=== PATIENT | male | born 1950 | race Caucasian/White ===

== ENCOUNTER 2019-09-16 21:23 | Observation (INO) | payer BC ==
[2019-09-16] MEDS ORDERED: NS 0.9% 1000 ML** 1,000 ML IV ONE (21:33)
--- NOTE | 2019-09-16 21:40 | ED ---
Neurological HPI - HPI Summary HPI Summary: This pt is a 68 y/o male presenting to [facility] c/o dizziness, nausea, and feeling off balance since about 1900 today. reports she was cooking dinner when patient began to feel nauseous and patient stood up. noticed patient was uncoordinated bumping into things and dropping things while eating. Patient states he feels dizzy and off balance. Patient is unable to described dizziness feeling. Additionally noticed patient's speech was slurred. Patient denies any associated pain. Denies headache, tingling, numbness, weakness. Patient admits to drinking tonight and notes he had 5 beers (the last drink was about 1900 today). 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 PMHx: retinal damage to left eye about 50 years ago and does not see well from left eye. - History of Current Complaint Chief Complaint: EDNeurologicalDeficit Stated Complaint: NAUSEA/CONFUSION/SLURRED SPEECH PER PT Time Seen by Provider: 09/16/19 21:33 Hx Obtained From: Patient, Family/Liaison Engineer - Onset/Duration: Sudden Onset, Still Present Timing: Sudden Onset Current Severity: Mild Pain Intensity: 0 Pain Scale Used: 0-10 Numeric Character: Dizzy, Unable To Describe, Other: - Off balance, slurred speech Aggravating: Nothing Alleviating: Nothing Associated Signs and Symptoms: Positive: Unsteady Gait, Dizziness, Nausea/ Vomiting - Nausea. Negative: Headache, Weakness, Pain, Fever, Chest Pain, Shortness of Breath - Allergy/Home Medications Allergies/Adverse Reactions: Allergies Allergy/AdvReac Type Severity Reaction Status Date / Time peanut oil Allergy Nausea Verified 09/16/19 21:26 PMH/Surg Hx/FS Hx/Imm Hx Endocrine/Hematology History: Denies: Hx Diabetes Cardiovascular History: Reports: Hx Hypertension Sensory History: Reports: Hx Vision Problem - Retinal damage to left eye Infectious Disease History: No Infectious Disease History: Denies: Traveled Outside the [place] in Last 30 Days - Family History Known Family History: Positive: Cardiac Disease - Social History Alcohol Use: Occasionally Substance Use Type: Reports: None Smoking Status (MU): Never Smoked Tobacco Review of Systems Negative: Fever, Chills Negative: Erythema Negative: Sore Throat Negative: Chest Pain Negative: Shortness Of Breath, Cough Positive: Nausea. Negative: Vomiting Negative: dysuria, hematuria Negative: Myalgia, Edema Negative: Rash Neurological: Other - POSITIVE: feeling off balance, slurred speech, dizziness Negative: Headache, Paresthesia, Numbness All Other Systems Reviewed And Are Negative: Yes Physical Exam - Summary Physical Exam Summary: Constitutional: Well-developed, Well-nourished, Alert. (-) Distressed Skin: Warm, Dry HENT: Normocephalic; Atraumatic Eyes: Conjunctiva normal Neck: Musculoskeletal ROM normal neck. (-) JVD, (-) Stridor, (-) Tracheal deviation Cardio: Rhythm regular, rate normal, Heart sounds normal; Intact distal pulses; The pedal pulses are 2+ and symmetric. Radial pulses are 2+ and symmetric. (-) Murmur Pulmonary/Chest wall: Effort normal. (-) Respiratory distress, (-) Wheezes, (-) Rales Abd: Soft. (-) Tenderness, (-) Distension, (-) Guarding, (-) Rebound Musculoskeletal: (-) Edema Lymph: (-) Cervical adenopathy Neuro: Alert, Oriented x3, Strength normal, Patient with dysarthria. Psych: Mood and affect Normal Triage Information Reviewed: Yes Vital Signs On Initial Exam: Initial Vitals Temp Pulse Resp BP Pulse Ox 98.0 F 74 18 124/84 98 09/16/19 21:28 09/16/19 21:28 09/16/19 21:28 09/16/19 21:28 09/16/19 21:28 Vital Signs Reviewed: Yes - [place] Coma Scale Best Eye Response: 4 - Spontaneous Best Motor Response: 6 - Obeys Commands Best Verbal Response: 5 - Oriented Coma Scale Total: 15 Procedures - Sedation Patient Received Moderate/Deep Sedation with Procedure: No Diagnostics - Vital Signs Vital Signs Temp Pulse Resp BP Pulse Ox 09/16/19 21:28 98.0 F 74 18 124/84 98 - Laboratory Result Diagrams: 09/17/19 05:58 09/17/19 05:58 Lab Statement: Any lab studies that have been ordered have been reviewed, and results considered in the medical decision making process. - CT Brain CT CT Interpretation Completed By: Radiologist Summary of CT Findings: IMPRESSION: 1. No acute intracranial abnormality. 2. Mil chronic small vessel ischemic disease. Dr. Young has reviewed this report. - EKG 2144 Cardiac Rate: NL - at 83 bpm EKG Rhythm: Sinus Rhythm Summary of EKG Findings: EKG at 2143 shows sinus rhythm at a rate of 83 bpm. No STEMI. EKG was interpreted and reviewed by ED physician. NIH Scale - NIH Scale Level of Consciousness: Alert/Keenly Responsive Ask Patient the Month and His/Her Age: Both Correct Ask Pt to Open/Close Eyes and Site Supervisor/Release Non-Paretic Hand: Both Correctly Best Gaze (Only Horizontal Eye Movement): Normal Visual Field Testing: Partial Hemianopia Facial Paresis-Pt to Smile & Close Eyes or Grimace Symmetry: Normal/Symmetrical Motor Function - Right Arm: No Drift-Holds 10 Seconds Motor Function - Left Arm: No Drift-Holds 10 Seconds Motor Function - Right Leg: No Drift-Holds 10 Seconds Motor Function - Left Leg: No Drift-Holds 10 Seconds Limb Ataxia-Must be out of Proportion to Weakness Present: Absent Sensory (Use Pinprick to Test Arms/Legs/Trunk/Face): Normal Best Language (Describe Picture, Name Items): No Aphasia Dysarthria (Read Several Words): Slurs Some Words Extinction and Inattention: No Abnormality Total Score: 2 Course/Dx - Course Course Of Treatment: Code Padilla overhead called at [address] Young. Pt to CT at 2132. Pt returns from CT at 2139. Radiologist repots negative brain CT at 2152. Discussed pt's case with Dr. Bolanos, neurologist from [facility] and initiated tele stroke. Assessment/Plan: Pt is a 68 y/o male presenting to [facility] c/o dizziness, nausea, and feeling off balance since about 1899 today. reports she was cooking dinner when patient began to feel nauseous and patient stood up. noticed patient was uncoordinated bumping into things and dropping things while eating. Patient states he feels dizzy and off balance. Patient is unable to described dizziness feeling. Additionally noticed patient's speech was slurred. Patient denies any associated pain. Pt admits to drinking 5 beers tonight, last drink at about 1899. Brain CT shows 1. No acute intracranial abnormality. 2. Mil chronic small vessel ischemic disease. Initiated tele stroke with Dr. Bolanos , neurologist from [facility]. Will tell Dr. Bolanos about a concern for alcohol intoxication and that labs are still pending at this time. Patient was signed out to Dr. Boateng pending lab results, chest XR, neurology consult, and disposition. At the time of sign out the CT images of still not been loaded at [facility]. Telestroke recommendations to Dr. boateng. - Diagnoses Provider Diagnoses: CVA (cerebral vascular accident), Alcohol intoxication During the Visit The Following Alert/Code Occurred: Code Padilla - overhead called at 2132 from triage. - Critical Care Time Critical Care Time: 30-74 min Discharge ED - Sign-Out/Discharge Documenting (check all that apply): Sign-Out Patient Signing out patient TO: Naima Boateng - Discharge Plan Condition: Stable Disposition: ADMITTED TO [facility] - Billing Disposition and Condition Condition: STABLE Disposition: Admitted to [facility] - Attestation Statements Document Initiated by Goldieibe: Yes Documenting Scribe: Lissa Monteiro Provider For Whom Scribe is Documenting (Include Credential): Gurmeet Young MD Scribe Attestation: Lissa Wakefield scribed for Gurmeet Young MD on 09/19/19 at 0827. Scribe Documentation Reviewed: Yes Provider Attestation: The documentation as recorded by the Lissa holguin accurately reflects the service I personally performed and the decisions made by , Gurmeet Young MD Status of Scribe Document: Viewed
[2019-09-16] MEDS ORDERED: Alteplase* 100 MG VIAL ONE (21:46)
[2019-09-16 22:02] LABS: ABS Basophils 0.1 10^3/ul (0-0.2); ABS Eosinophils 0.2 10^3/ul (0-0.6); ABS Lymphocytes 1.7 10^3/ul (1.0-4.8); ABS Monocytes 0.8 10^3/ul (0-0.8); ABS Neutrophils 4.1 10^3/ul (1.5-7.7); Eosinophil % 3.1 %; Hematocrit 44 % (42-52); Hemoglobin 15.1 g/dL (14.0-18.0); Lymphocyte % 24.1 %; Mean Corpuscular HGB Conc 34 g/dL (31-36); Mean Corpuscular Hemoglobin 31 pg (27-31); Mean Corpuscular Volume 90 fL (80-94); Mean Platelet Volume 7.6 fL (7.4-10.4); Platelet Count 185 10^3/uL (150-450); Red Blood Count 4.88 10^6 /uL (4.18-5.48); Red Cell Distribution Width 13 % (10-15)
[2019-09-16 22:11] LABS: Activated Partial Thrombo Time 29.8 seconds (26.0-38.0); INR 1.03 (0.82-1.09)
[2019-09-16 22:19] LABS: Albumin 3.9 g/dL (3.2-5.2); Albumin/Globulin Ratio 1.3 (1-3); BUN/Creatinine Ratio 14.8 (8-20); Calcium 8.6 mg/dL (8.6-10.3); EGFR Non-African American 95.1 (>60); HDL Cholesterol 40.3 mg/dL; Potassium 3.6 mmol/L (3.5-5.0); Total Bilirubin 0.8 mg/dL (0.2-1.0); Total Protein 6.9 g/dL (6.4-8.9)
[2019-09-16 22:20] LABS: Troponin I 0.01 ng/mL (<0.03)
--- NOTE | 2019-09-16 22:23 | ED ---
Progress - Progress Note Progress Note: Patient is sign out from Dr. Gurmeet Young to Dr. Naima Boateng at change of shift at 2200 on 09/16/19, pending lab work, CXR, neuro consult, and dispo. Course/Dx - Course Course Of Treatment: 68-year-old male signed out at change of shift to hi. Patient was a code chaudhary upon arrival through triage. Seen by Dr. Young. NIH reported as 2. Patient had negative CT scan of brain. Awaiting telemetry neuro consult. Neurologist did not recommend TPA at this time. Symptoms today. The patient's blood alcohol greater than 200. Patient referred to hospitalist for admission per neurology recommendations. - Diagnoses Provider Diagnoses: CVA (cerebral vascular accident), Alcohol intoxication During the Visit The Following Alert/Code Occurred: Code Padilla - overhead called at 2132 from triage. - Provider Notifications Discussed Care Of Patient With: Star Bolanos Time Discussed With Above Provider: 22:56 Instructed by Provider To: Other - I talked to Dr. Star Bolanos MD, who checked in with patient. Neurological signs subtle. No focal deficits. Even though the patient is in the TPA window, they would not recommend TPA. They recommend admission and repeat CT. I spoke to Dr. Childers, who accepts patient for admission. Admit/Transition Orders Completed By ED Provider: Yes Discharge ED - Sign-Out/Discharge Documenting (check all that apply): Patient Departure - admit, Receiving Sign- Out Receiving patient FROM: Gurmeet Young - Signout from Dr. Young at change of shift at 2200 on 09/16/19 - Discharge Plan Condition: Stable Disposition: ADMITTED TO [facility] - Billing Disposition and Condition Condition: STABLE Disposition: Admitted to [facility] - Attestation Statements Document Initiated by Scribe: Yes Documenting Scribe: Thomas Huerta Provider For Whom Scribe is Documenting (Include Credential): Dr. Naima Boateng MD Scribe Attestation: Thomas Wakefield, scribed for Dr. Naima Boateng MD on 09/17/19 at 0582. Scribe Documentation Reviewed: Yes Provider Attestation: The documentation as recorded by the scribeThomas accurately reflects the service I personally performed and the decisions made by hi, Dr. Naima Boateng MD Status of Scribe Document: Viewed
[2019-09-16] MEDS ORDERED: Thiamine INJ* 100 MG/ML 2 ML VIAL IM ONE (23:08)
[2019-09-16 23:41] LABS: Urine Appearance Clear; Urine Bilirubin Negative (Negative); Urine Blood Negative (Negative); Urine Color Straw; Urine Glucose Negative (Negative); Urine Ketones Negative (Negative); Urine Nitrite Negative (Negative); Urine Protein Negative (Negative); Urine Specific Gravity 1.004 (1.010-1.030); Urine Urobilinogen Negative (Negative)
[2019-09-17] MEDS ORDERED: LORazepam TAB(*) 1 MG PO SCH (02:00)
--- NOTE | 2019-09-17 04:23 | HP ---
CC: Dr. Brionna Ashford * ADMISSION HISTORY AND PHYSICAL: DATE OF ADMISSION: 09/17/19 CHIEF COMPLAINT: Dizziness and unsteady gait. HISTORY OF PRESENT ILLNESS: This is a 68-year-old male with past medical history of hypertension and dyslipidemia, but has not been on any medications for many months; history of gout; and benign prostatic hypertrophy; came in due to feeling dizzy, nausea, and feeling off balance. The patient stated that he was in his usual state of health, and when his was cooking dinner, he has had his 5 beers that is usual for him during the dinnertime and the noticed that his coordination was off and he was dropping things while he was eating, was feeling very dizzy and then followed by an episode of vomiting. So , he was brought into the ER and ishan chaudhary was called and Teleneurology suggested the patient should be observed to rule out any stroke with an MRI. The patient otherwise offers no symptoms at this point, stated that all his previous symptoms have resolved after coming into the ER. ALLERGIES: The patient has had allergy to peanut oil, canola and soy lemus oils to some extent, but not as much as peanut oil. He was previously known to have allergy to LIDOCAINE and OTHER ANESTHETICS, but since then has been tested and was told that he is no longer allergic to those. PAST MEDICAL HISTORY: As mentioned, 1. History of high blood pressure, but he has been off medication. 2. History of cholesterol. The patient states that give his strong family history of coronary artery disease, he was prophylactically given BP and cholesterol medications, but he has stopped taking them from few months ago. 3. Benign prostatic hypertrophy. 4. History of gout, for which he takes allopurinol. PAST SURGICAL HISTORY: 1. He has had heart catheterization in 1985, which was noted to be clean coronaries. 2. Right shoulder surgery after a fracture. 3. Bilateral jaw surgery. 4. Malignant melanoma removal. REVIEW OF SYSTEMS: A 14-point review of systems did not reveal any new information other than mentioned in the HPI. FAMILY HISTORY: Father at age 59 with heart disease. Mother age 65 with emphysema and heart attack. There are grandparents who also young due to coronary disease. 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 He does drink about 5 beers daily since he was 19, but denies any withdrawal, any shaking, but he never actually tried to stop drinking alcohol. He has tried marijuana in the 1970s, but has not smoked much since then. Denies any other tobacco use or any drug use. He is otherwise full code. HOME MEDICATIONS: The patient is on: 1. Aspirin 81 mg oral daily. 2. Allopurinol 300 mg oral daily. PHYSICAL EXAMINATION VITAL SIGNS: BP was noted to be 106/68, heart rate 72, respiration rate 17, saturating 91% on room air, temperature was 98 degrees Fahrenheit. GENERAL: The patient is awake, alert, and oriented x3, does not appear to be in any acute distress HEENT: Head: Atraumatic, normocephalic. Bilateral pupils reactive. Oral mucosa was moist. NECK: Supple. No jugular venous distention. HEART EXAM: S1, S2. Regular rate and rhythm. LUNGS: Clear to auscultation bilaterally. No wheezing, rhonchi or rales. ABDOMEN: Soft, nontender, nondistended. EXTREMITIES: No cyanosis, clubbing or edema. NEURO EXAMINATION: The patient had 5/5 strength in all 4 extremities. No change in sensation. There was no facial asymmetry during my evaluation. DIAGNOSTIC STUDIES/LAB DATA: CBC was unremarkable. Coagulation profile unremarkable. Comprehensive metabolic panel was unremarkable. LDL was at goal at 83. Urinalysis negative for any leuk esterase and nitrites. Serum alcohol was elevated at 241. EKG showed sinus rhythm, rate 83 beats a minute without any ST elevations. CT brain showed no acute intracranial abnormalities with ASPECTS score of 10. Mild chronic small vessel ischemic changes were noted. Portable chest x-ray was unremarkable. No congestive changes or any infiltrates. IMPRESSION: This is a 68-year-old male with previous history of hypertension, off medication; history of benign prostatic hypertrophy and gout, here due to unsteady gait and dizziness and nausea. Teleneurology was consulted by the ER, who stated that the patient may have flattening of the nasolabial fold on the left side and suggested observation overnight to rule out any transient ischemic attack versus stroke. ASSESSMENT AND PLAN: 1. Dizziness and questionable left side nasolabial flattening. Rule out transient ischemic attack versus stroke versus thiamine deficiency due to his alcohol abuse versus just alcohol intoxication causing the patient's symptoms. For now, we will order an MRI with and without contrast as recommended by the teleneurologist. Start the patient on thiamine and WAM protocol and risk stratification. The patient's LDL was already noted to be at goal at 83. I will start the patient on low-dose aspirin and check an A1c to rule out any diabetes causing the patient's symptoms. We will monitor the patient on telemetry to rule out any arrhythmias that could cause any transient ischemic attack. Further transient ischemic attack workup would be performed if the MRI shows any changes, but otherwise according to teleneurologist the patient can be discharged home if the MRI is negative and the patient is more sober. 2. History of hypertension. Currently off medication. Currently vital signs show BP is well controlled. We will monitor vital signs and consider starting the patient on BP medication if it is elevated. 3. History of dyslipidemia. Off medication, however, LDL at goal. 4. History of benign prostatic hypertrophy. Not on any medications at home, but is able to urinate at this point. 4. History of gout. Continue his allopurinol. 5. DVT prophylaxis with sequential compression device. 6. Code status. Full code. [id number]/[facility] #: [id number] [facility]
[2019-09-17 06:13] LABS: ABS Eosinophils 0.2 10^3/ul (0-0.6); ABS Lymphocytes 1.3 10^3/ul (1.0-4.8); ABS Monocytes 0.6 10^3/ul (0-0.8); ABS Neutrophils 3.1 10^3/ul (1.5-7.7); Eosinophil % 4.5 %; Hematocrit 45 % (42-52); Hemoglobin 15.3 g/dL (14.0-18.0); Lymphocyte % 24.5 %; Mean Corpuscular HGB Conc 34 g/dL (31-36); Mean Corpuscular Hemoglobin 31 pg (27-31); Mean Corpuscular Volume 92 fL (80-94); Mean Platelet Volume 7.7 fL (7.4-10.4); Nucleated Red Blood Cells % 0.1; Platelet Count 181 10^3/uL (150-450); Red Blood Count 4.92 10^6 /uL (4.18-5.48); Red Cell Distribution Width 14 % (10-15); White Blood Count 5.2 10^3/uL (3.5-10.8)
[2019-09-17 06:30] LABS: BUN/Creatinine Ratio 14.5 (8-20); Calcium 8.3 mg/dL (8.6-10.3); EGFR African American 123.8 (>60); EGFR Non-African American 102.3 (>60); Potassium 4.4 mmol/L (3.5-5.0)
[2019-09-17] MEDS ORDERED: Gadoteridol* (CONTRAST) 279.3 MG/ML 10 ML IV SCH ×2 (07:47→08:10)
[2019-09-17] MEDS ORDERED: Allopurinol TAB* 300 MG PO SCH (09:00)
[2019-09-17] MEDS ORDERED: Folic Acid TAB* 1 MG PO SCH (09:00)
[2019-09-17] MEDS ORDERED: Aspirin 81 mg CHEW TAB* 81 MG TAB.CHEW PO SCH (09:00)
[2019-09-17] MEDS ORDERED: Thiamine TAB* 100 MG TAB PO SCH (09:00)
[2019-09-17] MEDS ORDERED: Multivitamins/Minerals TAB PO SCH (09:00)
--- NOTE | 2019-09-17 10:58 | PN ---
Subjective Date of Service: 09/17/19 Interval History: HD 1 on 09/17 68M PMH HTN, HLD, gout, habitual ETOH use, who presented with AMS, found to have elevated BAL and ? TIA, admitted for r/o TIA vs w/drawal. Overnight no acute events, VSS This morning pleasant and well, recalls the event, remorseful about drinking. Tolerating diet denies any withdrawal sx. Objective Active Medications: Allopurinol (Zyloprim Tab*) 300 mg PO DAILY [facility] Last Admin: 09/17/19 08:49 Dose: 300 mg Aspirin (Aspirin 81 Mg Chew Tab*) 81 mg PO DAILY [facility] Last Admin: 09/17/19 08:49 Dose: 81 mg Folic Acid (Folvite Tab*) 1 mg PO DAILY [facility] Last Admin: 09/17/19 08:49 Dose: 1 mg Gadoteridol (Prohance* (Contrast)) 18 ml IV ONCE ANNE MARIE Stop: 09/19/19 08:09 Last Admin: 09/17/19 08:11 Dose: 18 ml Lorazepam (Ativan Tab(*)) 0 - 6 mg PO .PER [facility] PROTOCOL ANNE MARIE; Protocol Multivitamins/Minerals (Theragran/Minerals Tab*) 1 tab PO DAILY [facility] Last Admin: 09/17/19 08:49 Dose: 1 tab Thiamine HCl (Vitamin B-1 Tab*) 100 mg PO DAILY [facility] Last Admin: 09/17/19 08:47 Dose: 100 mg Vital Signs - 8 hr 09/17/19 09/17/19 09/17/19 02:42 04:15 05:12 Temperature 98.3 F 98.5 F Pulse Rate 71 59 Respiratory 16 14 16 Rate Blood Pressure 106/68 120/74 (mmHg) O2 Sat by Pulse 94 100 Oximetry 09/17/19 09/17/19 09/17/19 05:15 07:15 09:00 Temperature 97.2 F 97.5 F Pulse Rate 61 77 Respiratory 16 20 18 Rate Blood Pressure 129/77 130/80 (mmHg) O2 Sat by Pulse 99 98 Oximetry Oxygen Devices in Use Now: None Appearance: Pleasant man in NAD Eyes: No Scleral Icterus Ears/Nose/Mouth/Throat: NL Teeth, Lips, Gums Neck: NL Appearance and Movements; NL JVP Respiratory: Symmetrical Chest Expansion and Respiratory Effort, Clear to Auscultation Cardiovascular: NL Sounds; No Murmurs; No JVD, RRR Abdominal: NL Sounds; No Tenderness; No Distention, No Hepatosplenomegaly Lymphatic: No Cervical Adenopathy Extremities: No Edema Skin: No Rash or Ulcers Neurological: Alert and Oriented x 3, - - mild tremor Result Diagrams: 09/17/19 05:58 09/17/19 05:58 Diagnostic Imaging: MRI Brain: Chronic microvascular changes Assess/Plan/Problems-Billing Assessment: 68M PMH HTN, HLD, gout, habitual ETOH use, who presented with AMS, found to have elevated BAL and ? TIA, admitted for r/o TIA vs w/drawal. Likely his evet was from ETOH and possibly vasovagal though can't r/o specific TIA, he is non focal and we discuss he is stbale for d/c with primary prevention and discussion of lifestyle modifications. - Patient Problems (1) Altered mental status Current Visit: Yes Status: Acute Code(s): R41.82 - ALTERED MENTAL STATUS, UNSPECIFIED SNOMED Code(s): 523752948 Comment: -Likely multifactorial from ETOH use, possibly vasovagal, though can't r/o TIA -Asa, Statin, given high risk from a primary prevention standpoint 30 days DAPT and then asa alone (2) Gout Current Visit: Yes Status: Acute Code(s): M10.9 - GOUT, UNSPECIFIED SNOMED Code(s): 43952357 Comment: -Cont Allopurinol (3) HTN (hypertension) Current Visit: Yes Status: Acute Code(s): I10 - ESSENTIAL (PRIMARY) HYPERTENSION SNOMED Code(s): 53886340 Comment: -Very mild in the past, stopped taking home meds 2/2 to dizziness, will d/c on low dose Lisinopril 2.5 mg (4) Hyperlipidemia Current Visit: Yes Status: Acute Code(s): E78.5 - HYPERLIPIDEMIA, UNSPECIFIED SNOMED Code(s): 96548684 Comment: -Continue low dose statin, LDL in goal at 83 (5) Alcohol dependence syndrome Current Visit: Yes Status: Acute Code(s): F10.20 - ALCOHOL DEPENDENCE, UNCOMPLICATED SNOMED Code(s): 38150046 Comment: -Habitual drinker 5-8 drinks per night -Discussed healthy limits, counseled full cessation, B Vitamin and MVI -No e/o withdrawal (6) DVT prophylaxis Current Visit: Yes Status: Acute Code(s): Z29.9 - ENCOUNTER FOR PROPHYLACTIC MEASURES, UNSPECIFIED SNOMED Code(s): 098350268 Comment: -Ambulatory (7) Full code status Current Visit: Yes Status: Acute Code(s): Z78.9 - OTHER SPECIFIED HEALTH STATUS SNOMED Code(s): 191767798 Status and Disposition: DC to home
[2019-09-17] MEDS ORDERED: Lisinopril TAB* 5 MG PO SCH (12:00)
[2019-09-17] MEDS ORDERED: Clopidogrel TAB* 75 MG PO SCH (12:00)
--- NOTE | 2019-09-17 13:05 | DS ---
CC: Dr. Brionna Ashford DISCHARGE SUMMARY: DATE OF ADMISSION: 09/16/19 DATE OF DISCHARGE: 09/17/19 PRIMARY CARE PROVIDER: Dr. Brionna Ashford DISPOSITION AT THE TIME OF DISCHARGE: Stable to be discharged to home. PRIMARY DIAGNOSES: 1. Altered mental status. 2. Alcohol intoxication. 3. Rule out transient ischemic attack. SECONDARY DIAGNOSES: 1. Hypertension 2. Hyperlipidemia. 3. Gout. 4. Alcohol dependence with daily habitual use. 5. Overweight. MEDICATIONS AT THE TIME OF DISCHARGE: 1. Clopidogrel 35 mg p.o. daily. 2. Aspirin 81 mg p.o. daily. 3. Lisinopril tab 2.5 mg p.o. daily. 4. Simvastatin 5 mg p.o. daily. 5. Multivitamin daily. 6. Allopurinol 300 mg p.o. daily. Medication changes were the addition of clopidogrel to aspirin for a total of 30 days status post dis charge and the reinstating of low dose lisinopril and the reinstating of simvastatin 5 mg, allopurino l was continued, multivitamin was added. HISTORY OF PRESENT ILLNESS AND HOSPITAL COURSE: A 68-year-old man with the above past medical histor y, who presented to the emergency room on 09/16/19, who came in feeling dizzy, nauseous, confused, an d feeling off balance. He said he was in his usual state of health until his day of presentation. H clovis had 5 to 6 beers, which he reports is usual for him during dinnertime and his noticed that his coordination was off. He was dropping things while he was eating and feeling very dizzy. He had 1 episode of vomiting. They were concerned he was having a stroke, so he was brought to the emergency room and a ishan chaudhary was actually called and initial CT head and chest x-ray were unremarkable and th e patient was NIH stroke scale of 2. He also was found to have a blood alcohol level of 241 and in c onsultation with telemetry neuro consult, the patient was admitted for MRI, observation, and no tPA w as given. His hospital course under observation was as follows: 1. Altered mental status. The patient's altered mental status cleared over the course of his hospit alization consistent with likely alcohol intoxication and his primary presenting complaint. He had a n MRI that showed chronic microvascular changes, but no evidence of acute ischemic event and certainl y no hemorrhagic event. His telemetry remained in normal sinus rhythm without any evidence of paroxy smal atrial fibrillation. It is possible that this was a TIA that did not show up on the MRI and he had no focal neurologic deficits on hospital day #2 but given he is high risk with a history of hyper tension, hyperlipidemia, and a strong family history, it is reasonable to put the patient on aspirin and Plavix for 30 days after this event and in the low event that it was a TIA, this would help risk stratify him to prevent future events. 2. Hypertension, hyperlipidemia. The patient's LDL was 83. He is intermittently compliant on simva statin 5 mg, which is reasonable to continue. 3. His blood pressure is systolic 120s to max 140s while here. He reports he was on lisinopril and HCTZ prior, but stopped taking it secondary to dizziness. He is discharged on lisinopril 2.5 mg low dose, which can be adjusted by primary care as needed. 4. Gout. His allopurinol was continued. 5. BPH. The patient is not on medications. 6. Alcohol dependence with daily overuse. The patient reports 5 to 8 alcoholic units daily [place]. He has no history of documented withdrawal and reports no difficulty in stopping, although he admittedly has not tried. He had no evidence of alcohol withdrawal on hospital day #2. He was place d on CIWA protocol and did not score within the first 12 hours and thus stable to discharge the patie nt with close followup as he is out of the window of severe acute withdrawal and has no history of se izures or severe acute withdrawal. He was counseled on lifestyle changes, complete alcohol cessation , and having more mindful relationship with his substances. He and his are counseled thoroughly , had no further questions. Labs and studies done during this hospitalization. DIAGNOSTIC STUDIES/LAB DATA: Labs on day of discharge: White blood cell count 5.2, hemoglobin 15.3, hematocrit 45, platelets 181. Sodium 141, potassium 4.4, chloride 111, carbon dioxide 24, anion gap 60, BUN 11, creatinine 0.76, glucose 90. AST 27, ALT 33, alk phos 66, troponin 0.01, LDL cholesterol is 83. UA unremarkable. Serum alcohol was 241 at 8 o'clock on 09/16/19. Imaging includes a CT head noncontrast showed no acute intracranial pathology, a chest x-ray which sh owed no intrathoracic pathology, and EKG showed normal sinus rhythm with no signs of acute ischemia. Brain MRI on 09/17/19 showed chronic ischemic microvascular changes, but no evidence of acute ischem ia or infarct and he is to follow up status post discharge. PROBLEMS: 1. Acute episode of confusion with NIH stroke scale of 2. Again, this is likely multifactorial with alcohol intoxication and possibly vasovagal event as the primary inciting factor, although with a ne gative MRI and negative telemetry and nonfocal neurologic exam on hospital day 2, it is unlikely that this represented to true TIA, but given the risk of patient's family history of cardiac disease, hyp ertension, hyperlipidemia at baseline, the patient is risk stratified, to be placed on aspirin and Pl avix for 30 days status post this event and then resume aspirin alone furthermore for primary prevent ion. He is optimized on statin, low- dose blood pressure medication and thorough counseling for life style was given. 2. Alcohol dependence. The patient reports he will attempt complete cessation and will follow up [facility] primary care if he is struggling with cravings or withdrawal symptoms, in which case he could expl ore pharmacotherapy for alcohol use disorder. TIME SPENT: Thirty minutes was spent in the planning of this discharge with over half of that spent directly at the bedside of the patient providing direct patient care. Plan of care was discussed wit h the patient and his , they have no further questions. On day of discharge the patient is voidi ng, ambulating, tolerating diet freely and as per above is stable to be discharged to home. [id number]/[facility] #: [id number]
[2019-09-17 13:52] VITALS: BP 137/84
== END 2019-09-17 12:50 | disposition home or self-care (01) ==
LOC: ED 21:23 → MEDTELE 09-17 01:30
PROVIDERS: ADMIT Internal Medicine; ATTEND Internal Medicine
DX: R41.82 Altered mental status, unspecified (principal); F10.220 Alcohol dependence with intoxication, uncomplicated; I10 Essential (primary) hypertension; E78.5 Hyperlipidemia, unspecified; M10.9 Gout, unspecified; E66.3 Overweight; Z79.82 Long term (current) use of aspirin; N40.0 Benign prostatic hyperplasia without lower urinary tract symptoms; E78.00 Pure hypercholesterolemia, unspecified; Z88.4 Allergy status to anesthetic agent
CPT/HCPCS: 36415; 70450; 70553; 71045; 80048; 80053; 80061; 80320; 81003; 83036; 83605; 84484; 85025; 85610; 85730; 86850; 86900; 86901; 93005; 96372; 99285; A9270-GY; A9579; G0378; G0480; J2997; J3411